=== PATIENT | female | born 1990 | race African-American/Black ===

== ENCOUNTER 2018-11-25 17:22 | Emergency (ER) | payer OTHER ==
[~2018-11-25] VITALS: Ht 167.6 cm; Wt 96.4 kg
[2018-11-25 17:34] VITALS: TEMP 98.6
[2018-11-25 18:45] VITALS: BP 136/82; PULSE 76
[2018-11-25 18:56] LABS: HIV 1/2 Antibodies Non-Reactive; HIV-1p24 Antigen Non-Reactive
[2018-11-26 13:01] LABS: HEPATITIS B SURFACE ANTIGEN Negative (Negative); HEPATITIS C VIRUS ANTIBODY Negative (Negative)
== END 2018-11-25 18:46 | disposition home or self-care (01) ==
LOC: COL.ER 17:22
PROVIDERS: Physician Assistant
DX: W46.1XXA Contact with contaminated hypodermic needle, initial encounter (principal)